=== PATIENT | female | born 1965 | race Caucasian/White ===

== ENCOUNTER 2016-07-04 19:16 | Inpatient (IN) ==
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
[2016-07-04 20:21] LABS: Bilirubin,Urine Negative (Negative); Blood,Urine Trace (Negative); Clarity,Urine Clear (Clear); Color,Urine Yellow (Yellow); Glucose,Urine (UA) Normal (Normal); Ketones,Urine Negative (Negative); Leukocyte Esterase,Urine Negative (Negative); Nitrite,Urine Negative (Negative); PH,Urine 6.5 pH Units (5.0-8.0); Protein,Urine Negative (Neg-Trace); Specific Gravity,Urine 1.007 (1.010-1.025); Urobilinogen,Urine Normal (Normal)
[2016-07-04 20:23] LABS: Bacteria,Urine None Seen per hpf (None-Few); Hyaline Casts,Urine None Seen per lpf (None-Few); RBC,Urine 0-3 per hpf (0-3); Squamous Epithelial Cell,Urine Moderate per lpf (None-Few); WBC,Urine 0-3 per hpf (0-3)
[2016-07-04 20:29] LABS: Amphetamine Screen,Urine Negative ng/mL (Cutoff=1000); Barbiturate Screen,Urine Negative ng/mL (Cutoff=200); Benzodiazepines Screen,Urine Positive ng/mL (Cutoff=200); Cannabinoid Screen,Urine Negative ng/mL (Cutoff = 50); Cocaine Screen,Urine Negative ng/mL (Cutoff= 300); Opiate Screen,Urine Negative ng/mL (Cutoff=300); Phencyclidine Screen,Urine Negative ng/mL (Cutoff=25)
[2016-07-04 21:15] LABS: Basophils # 0.1 K/mcL (0.0-0.2); Basophils % 0.6 %; Eosinophils # 0.4 K/mcL (0.0-0.6); Eosinophils % 4.4 %; Hematocrit 41.1 % (35.3-44.9); Hemoglobin 13.9 g/dL (11.5-15.4); Immature Granulocytes % 0.4 % (0-4); Lymphocytes # 3.3 K/mcL (0.6-4.6); Lymphocytes % 35.1 %; Mean Corpuscular HGB Conc 33.8 g/dL (31.6-35.5); Mean Corpuscular Hemoglobin 31.1 pg (28.0-33.3); Mean Corpuscular Volume 91.9 fL (83.0-100.0); Monocytes # 0.5 K/mcL (0.0-1.3); Monocytes % 5.1 %; Neutrophils # 5.1 K/mcL (1.6-8.9); Platelet Count 229 K/mcL (140-400); Red Blood Count 4.47 M/mcL (3.82-4.97); Red Cell Distribution Width 13.5 % (11.5-14.5); Segmented Neutrophils % 54.4 %
[2016-07-04 21:28] LABS: BUN/Creatinine Ratio 10 (6-26); Blood Urea Nitrogen 8 mg/dL (7-20); Carbon Dioxide 25 mEq/L (19-29); Chloride 104 mEq/L (98-109); Glucose 82 mg/dL (70-99); Osmolality,Calculated 285 (280-300); Potassium 3.7 mEq/L (3.5-4.5); Sodium 139 mEq/L (136-145); eGFR For African Americans > 60 (> 60); eGFR For Non-African Americans > 60 (> 60)
[2016-07-04 21:31] LABS: Acetaminophen < 1.0 mcg/mL (10-30); Ethanol < 10 mg/dL (0-10); Salicylate < 5.0 mg/dL (15-30)
[2016-07-05] MEDS ORDERED: traZODone 50 MG TABLET PO PRN (00:01)
[2016-07-05] MEDS ORDERED: hydrOXYzine pamoate 25 MG CAPSULE PO PRN (00:01)
[2016-07-05] MEDS ORDERED: Haloperidol Lactate 5 MG/ML VIAL IM PRN (00:01)
[2016-07-05] MEDS ORDERED: Mag Hydrox/Al Hydrox/Simeth 30 ML UDC PO PRN (00:01)
[2016-07-05] MEDS ORDERED: MOM Conc 10 ML UD.LIQ PO PRN (00:01)
[2016-07-05] MEDS ORDERED: *HR* LORazepam 1 MG TABLET PO PRN (00:01)
[2016-07-05] MEDS ORDERED: *HR* LORazepam 2 MG/ML VIAL IM PRN (00:01)
[2016-07-05] MEDS ORDERED: diazePAM 10 MG TABLET PO PRN (00:29)
[2016-07-05] MEDS: Ibuprofen 400 MG TABLET PO PRN ×2 (00:41→09:16)
--- NOTE | 2016-07-05 06:48 | Venous Imaging Report ---
LE Venous Duplex Patient Name:Reji Campoverde Order Number:[id number] Procedure Date:07/04/2016 Date:1965Age:51 yrs Gender:Female Location:[facility] ED Room #: ER8 Mixing Pan Tender:Courtney Juraez Referring MD:Hussain Covarrubias MD aerotriangulation specialist:DO Sarah Fontana MD:Zach Wiggins MD Primary Indications:leg swelling Secondary Indications: Impressions: Normal left lower extremity deep and superficial venous exam. Normal contralateral common femoral vein. Recommendations: After imaging the patient returned to their room. Gave vascular preliminary results to Chet Covarrubias on 07/04/2016 at 21:05. Test completed on 07/04/2016 at 8:53:00 pm. Findings Venous Duplex Results: Right: Venous imaging of the lower extremity reveals full patency and normal vessel compressibility of the right common femoral. Doppler signals in the evaluated veins were normal. Left: Venous imaging of the lower extremity reveals full patency and normal vessel compressibility of the left distal iliac, left common femoral, left superficial femoral, left popliteal, left posterior tibial, left peroneal, left great saphenous and left lesser saphenous. Doppler signals in the evaluated veins were normal. Prior Study: No prior study available for comparison. Lower Extremity Venous Duplex Side Vein Compress Spontaneous Flow Augment Diameter (cm) Depth (cm) Left Distal Iliac Normal Yes Phasic Yes Left Common Femoral Normal Yes Phasic Yes Left Superficial Femoral Normal Yes Phasic Yes Left Popliteal Normal Yes Phasic Yes Left Posterior Tibial Normal Yes Phasic Yes Left Peroneal Normal Yes Phasic Yes Left Great Saphenous Normal Yes Phasic Yes Left Lesser Saphenous Normal Yes Phasic Yes Right Common Femoral Normal Yes Phasic Yes Updated by Zach Wiggins MD on 07/05/2016 6:43:09 AM electronically signed on 07/05/2016 6:43:18 AM with status of Final
--- NOTE | 2016-07-05 07:34 | Emergency Department Note ---
Disposition Clinical Impression: Suicidal ideation Disposition: Admitted As Inpatient Condition: Good Psych HPI - General Chief Complaint: ED Psychiatric Symptoms Stated Complaint: Bloodclot/SI Time Seen by Provider: 07/04/16 20:12 Source: patient Mode of arrival: ambulatory - History of Present Illness Duration: constant Improves with: none Worsens with: none Associated symptoms: Reports: denies other symptoms Treatments prior to arrival: none - Related Data Previous Rx's Medication Instructions Recorded Famotidine [Pepcid] 20 mg PO BID #60 tablet 04/18/15 PredniSONE [Prednisone] 10 mg PO DAILY #21 tablet 04/18/15 Cephalexin [Keflex] 1 cap PO QID #40 capsule 04/21/15 Ibuprofen [Motrin] 1 tab PO Q8HR #30 tablet 04/21/15 Ketorolac [Toradol] 10 mg PO Q6HR PRN #20 tablet 04/21/15 Albuterol Sulfate [Albuterol 0 puff IH Q6HR PRN #1 hfa.aer.ad 08/20/15 Inhaler] Azithromycin [Azithromycin 6-Tab 250 mg PO PER PKG DI #6 tab 08/20/15 Pack] Nicotine Patch [Nicoderm] 14 mg TD DAILY #20 patch.td24 08/20/15 PredniSONE 60 mg PO DAILY #15 tablet 08/20/15 GuaiFENesin ER [Mucinex] 600 mg PO BID #10 tbbp.12hr 08/22/15 HYDROcodone BIT/Homatropine 5 mg PO Q6HR #10 tablet 08/22/15 [Hycodan] Levofloxacin [Levaquin] 750 mg PO DAILY #7 tablet 08/22/15 Ondansetron ODT [Zofran ODT] 4 mg PO Q6HR #10 tab.rapdis 08/22/15 PredniSONE 60 mg PO DAILY #15 tablet 08/22/15 Allergies Allergy/AdvReac Type Severity Reaction Status Date / Time acetaminophen [From Vicodin] Allergy Mild Nausea Verified 04/18/15 18:24 hydrocodone [From Vicodin] Allergy Mild Nausea Verified 04/18/15 18:24 aspirin [From Percodan] AdvReac Mild Nausea Verified 04/18/15 18:24 codeine AdvReac Mild Nausea Verified 04/18/15 18:24 Oxycodone [From Percocet] AdvReac Mild Nausea Verified 04/18/15 18:24 tramadol [From Ultram] AdvReac Mild Nausea Verified 04/18/15 18:24 Sulfa (Sulfonamide AdvReac Nausea Verified 04/18/15 18:24 Antibiotics) [place] Allergy Hives Uncoded 04/18/15 18:24 Constitutional: Denies: fever, chills, weakness, weight change Eyes: Denies: eye pain, eye discharge, vision change ENT ED: Denies: ear pain, throat pain, dental pain, hearing loss, epistaxis, congestion, dysphagia Cardiovascular: Denies: chest pain, palpitations, dyspnea on exertion, edema, syncope Respiratory: Denies: cough, dyspnea, wheezes, hemoptysis, stridor Gastrointestinal: Denies: abdominal pain, nausea, vomiting, diarrhea, constipation, hematemesis, melena, hematochezia Genitourinary: Denies: dysuria, frequency, hematuria, discharge Musculoskeletal: Reports: back pain, arthralgia. Denies: neck pain, myalgia Integumentary: Denies: rash, abrasion, lesions Neurological: Denies: headache, weakness, numbness, paresthesias, confusion, abnormal gait, vertigo Psychiatric: Denies: anxiety, depression, suicidal thoughts, homicidal thoughts , auditory hallucinations, visual hallucinations Endocrine: Denies: fatigue Hematological/Lymphatic: Denies: easy bleeding, easy bruising Allergic/Immunologic: Denies: facial swelling, urticaria Past Medical History - Past Medical History Medical history: Reports: thyroid disease, other Surgical history: Reports: appendectomy Psychiatric history: Reports: anxiety, depression 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 history - Social History Smoking Status: Current every day smoker Smokeless Tobacco Status: No Alcohol use: Reports: rarely Drug use: Reports: none Physical Exam - General Limitations: no limitations General appearance: alert Course Vital Signs Temperature 98.4 F 07/04/16 19:24 Pulse Rate 80 07/04/16 19:24 Respiratory Rate 14 07/04/16 19:24 Blood Pressure 150/89 07/04/16 19:24 O2 Sat by Pulse Oximetry 98 07/04/16 19:24 Temperature 97.3 F L 07/04/16 23:42 Pulse Rate 67 07/04/16 23:42 Respiratory Rate 18 07/04/16 23:42 Blood Pressure 156/93 07/04/16 23:42 O2 Sat by Pulse Oximetry 98 07/04/16 19:24 Oxygen Delivery Oxygen Delivery Room Air Psych - MDM Narrative Medical decision making narrative: Patient received in signout from Dr. Covarrubias pending disposition and they will health evaluation. [facility] health evaluated the patient and recommended she be admitted to the hospital for further care and evaluation. Patient had no further concerns or complaints. - Lab Data Result diagrams: 07/04/16 21:07 07/04/16 21:07 Lab Results 07/04/16 07/04/16 07/04/16 Range/Units 19:45 19:45 21:07 WBC 9.4 (4.3-11.1) K/mcL RBC 4.47 (3.82-4.97) M/mcL Hgb 13.9 (11.5-15.4) g/dL Hct 41.1 (35.3-44.9) % MCV 91.9 (83.0-100.0) fL MCH 31.1 (28.0-33.3) pg MCHC 33.8 (31.6-35.5) g/dL RDW 13.5 (11.5-14.5) % Plt Count 229 (140-400) K/mcL MPV 9.0 L (9.4-12.4) fL Immature Gran % 0.4 (0-4) % Seg Neutrophils % 54.4 % Lymphocytes % 35.1 % Monocytes % 5.1 % Eosinophils % 4.4 % Basophils % 0.6 % Neutrophils # 5.1 (1.6-8.9) K/mcL Lymphocytes # 3.3 (0.6-4.6) K/mcL Monocytes # 0.5 (0.0-1.3) K/mcL Eosinophils # 0.4 (0.0-0.6) K/mcL Basophils # 0.1 (0.0-0.2) K/mcL Sodium (136-145) mEq/L Potassium (3.5-4.5) mEq/L Chloride (98-109) mEq/L Carbon Dioxide (19-29) mEq/L BUN (7-20) mg/dL Creatinine (0.57-1.11) mg/dL Est GFR ( Amer) (> 60) Est GFR (Non-Af Amer) (> 60) BUN/Creatinine Ratio (6-26) Glucose (70-99) mg/dL Calculated Osmolality (280-300) Calcium (8.6-10.8) mg/dL Urine Color Yellow (Yellow) Urine Clarity Clear (Clear) Urine pH 6.5 (5.0-8.0) pH Units Ur Specific [place] 1.007 L (1.010-1.025) Urine Protein Negative (Neg-Trace) mg/dL Urine Glucose (UA) Normal (Normal) mg/dL Urine Ketones Negative (Negative) mg/dL Urine Blood Trace H (Negative) Urine Nitrite Negative (Negative) Urine Bilirubin Negative (Negative) Urine Urobilinogen Normal (Normal) mg/dL Ur Leukocyte Esterase Negative (Negative) Urine Microscopic RBC 0-3 (0-3) per hpf Urine Microscopic WBC 0-3 (0-3) per hpf Ur Squamous Epith Cells Moderate H (None-Few) per lpf Urine Bacteria None Seen (None-Few) per hpf Hyaline Casts None Seen (None-Few) per lpf Salicylates (15-30) mg/dL Urine Opiates Screen Negative (Qnrjgk=896) ng/mL Acetaminophen (10-30) mcg/mL Ur Barbiturates Screen Negative (Eaddpm=852) ng/mL Ur Phencyclidine Scrn Negative (Cutoff=25) ng/mL Ur Amphetamines Screen Negative (Mdkmyo=8852) ng/mL U Benzodiazepines Scrn Positive H (Rlvfet=453) ng/mL Urine Cocaine Screen Negative (Cutoff= 300) ng/mL U Marijuana (THC) Screen Negative (Cutoff = 50) ng/mL Ethyl Alcohol (0-10) mg/dL 07/04/ Range/Units 21:07 WBC (4.3-11.1) K/mcL RBC (3.82-4.97) M/mcL Hgb (11.5-15.4) g/dL Hct (35.3-44.9) % MCV (83.0-100.0) fL MCH (28.0-33.3) pg MCHC (31.6-35.5) g/dL RDW (11.5-14.5) % Plt Count (140-400) K/mcL MPV (9.4-12.4) fL Immature Gran % (0-4) % Seg Neutrophils % % Lymphocytes % % Monocytes % % Eosinophils % % Basophils % % Neutrophils # (1.6-8.9) K/mcL Lymphocytes # (0.6-4.6) K/mcL Monocytes # (0.0-1.3) K/mcL Eosinophils # (0.0-0.6) K/mcL Basophils # (0.0-0.2) K/mcL Sodium 139 (136-145) mEq/L Potassium 3.7 (3.5-4.5) mEq/L Chloride 104 (98-109) mEq/L Carbon Dioxide 25 (19-29) mEq/L BUN 8 (7-20) mg/dL Creatinine 0.79 (0.57-1.11) mg/dL Est GFR ( Amer) > 60 (> 60) Est GFR (Non-Af Amer) > 60 (> 60) BUN/Creatinine Ratio 10 (6-26) Glucose 82 (70-99) mg/dL Calculated Osmolality 285 (280-300) Calcium 9.0 (8.6-10.8) mg/dL Urine Color (Yellow) Urine Clarity (Clear) Urine pH (5.0-8.0) pH Units Ur Specific [place] (1.010-1.025) Urine Protein (Neg-Trace) mg/dL Urine Glucose (UA) (Normal) mg/dL Urine Ketones (Negative) mg/dL Urine Blood (Negative) Urine Nitrite (Negative) Urine Bilirubin (Negative) Urine Urobilinogen (Normal) mg/dL Ur Leukocyte Esterase (Negative) Urine Microscopic RBC (0-3) per hpf Urine Microscopic WBC (0-3) per hpf Ur Squamous Epith Cells (None-Few) per lpf Urine Bacteria (None-Few) per hpf Hyaline Casts (None-Few) per lpf Salicylates < 5.0 L (15-30) mg/dL Urine Opiates Screen (Zdguwd=064) ng/mL Acetaminophen < 1.0 L (10-30) mcg/mL Ur Barbiturates Screen (Pnvydj=614) ng/mL Ur Phencyclidine Scrn (Cutoff=25) ng/mL Ur Amphetamines Screen (Fanzyp=0300) ng/mL U Benzodiazepines Scrn (Rossbs=770) ng/mL Urine Cocaine Screen (Cutoff= 300) ng/mL U Marijuana (THC) Screen (Cutoff = 50) ng/mL Ethyl Alcohol < 10 (0-10) mg/dL Psychiatric Medical Clearance - Medical Clearance Checklist Medical History: No Social History Section defined Current Vitals: Last Vital Signs Temp 97.3 F L 07/04/16 23:42 Pulse 67 07/04/16 23:42 Resp 18 07/04/16 23:42 BP 156/93 07/04/16 23:42 Pulse Ox 98 07/04/16 19:24 Psychiatric Lab Panel: Drug Levels and Toxicity 07/04/16 07/04/16 19:45 21:07 Urine Opiates Screen Negative Acetaminophen < 1.0 L Ur Barbiturates Screen Negative Ur Phencyclidine Scrn Negative Ur Amphetamines Screen Negative U Benzodiazepines Scrn Positive H Urine Cocaine Screen Negative U Marijuana (THC) Screen Negative Ethyl Alcohol < 10 Abnormal Labs: Abnormal lab results MPV 9.0 fL (9.4-12.4) L 07/04/16 21:07 Ur Specific [place] 1.007 (1.010-1.025) L 07/04/16 19:45 Urine Blood Trace (Negative) H 07/04/16 19:45 Ur Squamous Epith Cells Moderate per lpf (None-Few) H 07/04/16 19:45 Salicylates < 5.0 mg/dL (15-30) L 07/04/16 21:07 Acetaminophen < 1.0 mcg/mL (10-30) L 07/04/16 21:07 U Benzodiazepines Scrn Positive ng/mL (Bbjnen=331) H 07/04/16 19:45 Statement of Medical Clearance: I have evaluated the patient, reviewed diagnostic information, and certify that the patient's medical condition is sufficiently stable that transfer to the psychiatric unit does not pose a significant risk of deterioration.
[2016-07-05] MEDS: Nicotine 14 MG PATCH.TD24 TD SCH (09:10)
--- NOTE | 2016-07-05 11:22 | Psychiatry History & Physical ---
Date of Encounter: 07/05/16 Time of Encounter: 11:10 History of Present Illness Patient Stated Chief Complaint: Suicidal Medicare Admission Attestation: For traditional Medicare patients the provided hospital inpatient services are reasonable and necessary and in the case of services not specified as inpatient -only under 42 CFR 419.22 (n), that they are appropriately provided as inpatient services in accordance 42 CFR 412.3. For [facility] the patient may reasonably be expected to be discharged or transferred to a hospital within 96 hours after admission to the [facility]. Admitted From: Emergency Dept History of Present Illness: Ms. Campoverde is a 51 year old female admitted from the emergency room for evaluation of suicidal ideation. Patient has no previous psychiatric history or treatment. She reports her stress at work as a result of falsifying her time sheet, she works as a [employer]. Also she is taking care off her mother who has multiple medical problems. Patient could not explain or endorse symptoms of depression or hopelessness and insisted that she is not suicidal. She is occupied with medical issues, she was evaluated for DVT and reported as negative by ultrasound. On interview she was guarded and evasive tangential and circumstantial and was not coming forward with answers to questions she was also hostile and irritable. Past Med Surg Social Fam HX - Past Medical History Medical history: thyroid disease, other - Past Psychiatric History Psychiatric history: Reports: no psych history - Past Surgical History Surgical History: appendectomy - Social History Smoking Status: Current every day smoker Smokeless Tobacco Status: No Alcohol use: rarely Drug use: none - Family History Mother Hx Family Neuromuscular Disorders: Yes (TIAs) Medications & Allergies Ibuprofen [Motrin] 1 tab PO Q8HR #30 tablet 04/21/15 [Rx] Nicotine Patch [Nicoderm] 14 mg TD DAILY #20 patch.td24 08/20/15 [Rx] Albuterol Sulfate [Albuterol Inhaler] 2 puff IH Q6HR PRN 07/05/16 [History] Amitriptyline [Elavil] 25 mg PO DAILY 07/05/16 [History] Atorvastatin Calcium [Lipitor] 20 mg PO DAILY 07/05/16 [History] Cyanocobalamin (Vitamin B-12) [Vitamin B12] 1,000 mcg PO DAILY 07/05/16 [History ] Cyclobenzaprine [Flexeril] 10 mg PO TID PRN 07/05/16 [History] Diazepam [Valium] 10 mg PO TID PRN 07/05/16 [History] DiphenhydraMINE [Benadryl] 25 mg PO Q6HR PRN 07/05/16 [History] EPINEPHrine [Epipen] 0.3 mg IM ONCE PRN 07/05/16 [History] Escitalopram [Lexapro] 30 mg PO DAILY 07/05/16 [History] Esomeprazole Magnesium [Nexium] 40 mg PO DAILY 07/05/16 [History] Levothyroxine [Synthroid] 75 mcg PO DAILY 07/05/16 [History] Allergies acetaminophen [From Vicodin] Allergy (Mild, Verified 04/18/15 18:24) Nausea hydrocodone [From Vicodin] Allergy (Mild, Verified 04/18/15 18:24) Nausea aspirin [From Percodan] Adverse Reaction (Mild, Verified 04/18/15 18:24) Nausea codeine Adverse Reaction (Mild, Verified 04/18/15 18:24) Nausea Oxycodone [From Percocet] Adverse Reaction (Mild, Verified 04/18/15 18:24) Nausea tramadol [From Ultram] Adverse Reaction (Mild, Verified 04/18/15 18:24) Nausea Sulfa (Sulfonamide Antibiotics) Adverse Reaction (Verified 04/18/15 18:24) Nausea cottonwood Allergy (Uncoded 04/18/15 18:24) Hives Review of Systems Psychiatric: Reports: suicidal ideation Mental Status Exam Patient orientation: Yes Person, Yes Time, Yes Place Level of alertness: Alert Patient appearance: Appropriate, Well Groomed, Obese Behavior: calm, uncooperative Psychomotor activity: Normal Eye contact: Minimal Contact Mood description: Euthymic/stable, Anxious, Irritable Affect description: congruent with mood, full range Speech pattern: Normal rate, Normal rhythm, Normal tone, Other (Vague, evasive) Speech volume: Normal Thought process: Linear, Goal Oriented Thought content: Yes Suicidal ideation, No Homicidal ideation, No Overt delusions Perceptual disturbances: No Auditory hallucinations, No Visual hallucinations Attention span: Unable to Focus Memory description: Grossly Intact Patient reliability: Questionable Historian Intelligence estimate: Average Judgment: Limited Insight: Partial Results - Vital Signs Vital signs: Temp Pulse Resp BP Pulse Ox 97.2 F L 81 16 142/94 98 07/05/16 08:38 07/05/16 08:38 07/05/16 08:38 07/05/16 08:38 07/04/16 19:24 - Labs Labs: Laboratory Last Values WBC 9.4 K/mcL (4.3-11.1) 07/04/16 21:07 RBC 4.47 M/mcL (3.82-4.97) 07/04/16 21:07 Hgb 13.9 g/dL (11.5-15.4) 07/04/16 21:07 Hct 41.1 % (35.3-44.9) 07/04/16 21:07 MCV 91.9 fL (83.0-100.0) 07/04/16 21:07 MCH 31.1 pg (28.0-33.3) 07/04/16 21:07 MCHC 33.8 g/dL (31.6-35.5) 07/04/16 21:07 RDW 13.5 % (11.5-14.5) 07/04/16 21:07 Plt Count 229 K/mcL (140-400) 07/04/16 21:07 MPV 9.0 fL (9.4-12.4) L 07/04/16 21:07 Immature Gran % 0.4 % (0-4) 07/04/16 21:07 Seg Neutrophils % 54.4 % 07/04/16 21:07 Lymphocytes % 35.1 % 07/04/16 21:07 Monocytes % 5.1 % 07/04/16 21:07 Eosinophils % 4.4 % 07/04/16 21:07 Basophils % 0.6 % 07/04/16 21:07 Neutrophils # 5.1 K/mcL (1.6-8.9) 07/04/16 21:07 Lymphocytes # 3.3 K/mcL (0.6-4.6) 07/04/16 21:07 Monocytes # 0.5 K/mcL (0.0-1.3) 07/04/16 21:07 Eosinophils # 0.4 K/mcL (0.0-0.6) 07/04/16 21:07 Basophils # 0.1 K/mcL (0.0-0.2) 07/04/16 21:07 Sodium 139 mEq/L (136-145) 07/04/16 21:07 Potassium 3.7 mEq/L (3.5-4.5) 07/04/16 21:07 Chloride 104 mEq/L (98-109) 07/04/16 21:07 Carbon Dioxide 25 mEq/L (19-29) 07/04/16 21:07 BUN 8 mg/dL (7-20) 07/04/16 21:07 Creatinine 0.79 mg/dL (0.57-1.11) 07/04/16 21:07 Est GFR ( Amer) > 60 (> 60) 07/04/16 21:07 Est GFR (Non-Af Amer) > 60 (> 60) 07/04/16 21:07 BUN/Creatinine Ratio 10 (6-26) 07/04/16 21:07 Glucose 82 mg/dL (70-99) 07/04/16 21:07 Calculated Osmolality 285 (280-300) 07/04/16 21:07 Calcium 9.0 mg/dL (8.6-10.8) 07/04/16 21:07 Urine Color Yellow (Yellow) 07/04/16 19:45 Urine Clarity Clear (Clear) 07/04/16 19:45 Urine pH 6.5 pH Units (5.0-8.0) 07/04/16 19:45 Ur Specific Belcher 1.007 (1.010-1.025) L 07/04/16 19:45 Urine Protein Negative mg/dL (Neg-Trace) 07/04/16 19:45 Urine Glucose (UA) Normal mg/dL (Normal) 07/04/16 19:45 Urine Ketones Negative mg/dL (Negative) 07/04/16 19:45 Urine Blood Trace (Negative) H 07/04/16 19:45 Urine Nitrite Negative (Negative) 07/04/16 19:45 Urine Bilirubin Negative (Negative) 07/04/16 19:45 Urine Urobilinogen Normal mg/dL (Normal) 07/04/16 19:45 Ur Leukocyte Esterase Negative (Negative) 07/04/16 19:45 Urine Microscopic RBC 0-3 per hpf (0-3) 07/04/16 19:45 Urine Microscopic WBC 0-3 per hpf (0-3) 07/04/16 19:45 Ur Squamous Epith Cells Moderate per lpf (None-Few) H 07/04/16 19:45 Urine Bacteria None Seen per hpf (None-Few) 07/04/16 19:45 Hyaline Casts None Seen per lpf (None-Few) 07/04/16 19:45 Salicylates < 5.0 mg/dL (15-30) L 07/04/16 21:07 Urine Opiates Screen Negative ng/mL (Titcbz=044) 07/04/16 19:45 Acetaminophen < 1.0 mcg/mL (10-30) L 07/04/16 21:07 Ur Barbiturates Screen Negative ng/mL (Jfzwiy=997) 07/04/16 19:45 Ur Phencyclidine Scrn Negative ng/mL (Cutoff=25) 07/04/16 19:45 Ur Amphetamines Screen Negative ng/mL (Ooenec=0594) 07/04/16 19:45 U Benzodiazepines Scrn Positive ng/mL (Ryigri=717) H 07/04/16 19:45 Urine Cocaine Screen Negative ng/mL (Cutoff= 300) 07/04/16 19:45 U Marijuana (THC) Screen Negative ng/mL (Cutoff = 50) 07/04/16 19:45 Ethyl Alcohol < 10 mg/dL (0-10) 07/04/16 21:07 Assessment and Plan (1) Major depressive disorder, recurrent episode, unspecified Current visit: Yes Status: Acute Plan: Admit inpatient for safety and stabilization, Close observation, Suicide Precautions per unit protocol, Encourage participation in unit milieu, Group Therapy, Monitor sleep, Monitor appetite Qualifiers: Major depression episode severity: unspecified Qualified Code(s): F33.9 - Major depressive disorder, recurrent, unspecified (2) Major depressive disorder, single episode, unspecified Current visit: Yes Status: Acute Qualifiers: Psychotic features: without psychotic features Qualified Code(s): F32.2 - Major depressive disorder, single episode, severe without psychotic features
[2016-07-05] MEDS: Ibuprofen 800 MG TABLET PO PRN (21:00)
[2016-07-06] MEDS: Ibuprofen 800 MG TABLET PO PRN (07:13)
[2016-07-06 08:49] VITALS: BP 137/88
[2016-07-06] MEDS: Nicotine 14 MG PATCH.TD24 TD SCH (09:13)
--- NOTE | 2016-07-06 12:06 | Discharge Summary ---
Date of Encounter: 07/06/16 Time of Encounter: 11:59 Diagnosis - Discharge Diagnosis (1) Major depressive disorder, single episode, unspecified Status: Acute Qualifiers: Psychotic features: without psychotic features Qualified Code(s): F32.2 - Major depressive disorder, single episode, severe without psychotic features Medications - Discharge Medications Ibuprofen [Motrin] 1 tab PO Q8HR #30 tablet 04/21/15 [Rx] Nicotine Patch [Nicoderm] 14 mg TD DAILY #20 patch.td24 08/20/15 [Rx] Albuterol Sulfate [Albuterol Inhaler] 2 puff IH Q6HR PRN 07/05/16 [History] Amitriptyline [Elavil] 25 mg PO DAILY 07/05/16 [History] Atorvastatin Calcium [Lipitor] 20 mg PO DAILY 07/05/16 [History] Cyanocobalamin (Vitamin B-12) [Vitamin B12] 1,000 mcg PO DAILY 07/05/16 [History ] Cyclobenzaprine [Flexeril] 10 mg PO TID PRN 07/05/16 [History] Diazepam [Valium] 10 mg PO TID PRN 07/05/16 [History] DiphenhydraMINE [Benadryl] 25 mg PO Q6HR PRN 07/05/16 [History] EPINEPHrine [Epipen] 0.3 mg IM ONCE PRN 07/05/16 [History] Escitalopram [Lexapro] 30 mg PO DAILY 07/05/16 [History] Esomeprazole Magnesium [Nexium] 40 mg PO DAILY 07/05/16 [History] Levothyroxine [Synthroid] 75 mcg PO DAILY 07/05/16 [History] Allergies acetaminophen [From Vicodin] Allergy (Mild, Verified 04/18/15 18:24) Nausea hydrocodone [From Vicodin] Allergy (Mild, Verified 04/18/15 18:24) Nausea aspirin [From Percodan] Adverse Reaction (Mild, Verified 04/18/15 18:24) Nausea codeine Adverse Reaction (Mild, Verified 04/18/15 18:24) Nausea Oxycodone [From Percocet] Adverse Reaction (Mild, Verified 04/18/15 18:24) Nausea tramadol [From Ultram] Adverse Reaction (Mild, Verified 04/18/15 18:24) Nausea Sulfa (Sulfonamide Antibiotics) Adverse Reaction (Verified 04/18/15 18:24) Nausea cottonwood Allergy (Uncoded 04/18/15 18:24) Hives Provider Date of admission: 07/04/16 23:34 Primary care physician: PCP NO Discharging clinician: Billy Palafox Assessment and Plan - Patient/Caregiver Discharge Instructions Activity: resume usual activities as tolerated Diet: regular diet - Follow up Plan Follow up with: Ebenezer Cotto [facility] [employer] [facility] [Outside] - 07/10/16 9:30 am (The above appointment is with Yanni Castro for counseling. Please arrive 15 minutes early to complete paperwork. Please bring your insurance card, proof of income , photo ID and medications in their original bottles. You will also see Cindy Hutchins, psychiatric prescriber, on 09/25/2016 at 2:00pm. If you are unable to keep any appointment, 24 hour business notice of cancellation is expected. ) Zach Lew, [Partnered Physician] - 07/16/16 11:30 am (The above appointment is with Dr. Lew.) Functional capacity at discharge: independent ambulation Overall status at discharge: Stable Disposition: Home, Self-Care Hospital Course Hospital course: Ms. Campoverde is a 51 year old female admitted from the emergency room for suicidal ideation with plan to overdose on her medication. Details of the admission please see H&P On the unit patient was restarted on home medication, no medication changes were necessary. Patient did not participate in group activities and was demanding from the nursing staff regarding her medication and her needs. Patient denied any suicidal intent and she was medically stable and anxious to be discharged. Follow-up plans were shared with her by the elementary school social worker. - Time Spent with Patient Total time spent providing and/or coordinating discharge services: Greater than 30 minutes Quality - Multiple Antipsychotics Patient discharged on 2 or more antipsychotic medications: No Mental Status Exam - Mental Status Exam Patient orientation: Yes Person, Yes Time, Yes Place Level of alertness: Alert Patient appearance: Appropriate, Well Groomed, Obese Behavior: calm, uncooperative Psychomotor activity: Normal Eye contact: Minimal Contact Mood description: Euthymic/stable, Anxious, Irritable Affect description: congruent with mood, full range Speech pattern: Normal rate, Normal rhythm, Normal tone, Other (Vague, evasive) Speech Volume: Normal Thought process: Linear, Goal Oriented Thought Content: No Suicidal ideation, No Homicidal ideation, No Overt delusions Perceptual Disturbances: No Auditory hallucinations, No Visual hallucinations Judgment: Limited Insight: Partial
== END 2016-07-06 12:40 | disposition home or self-care (01) | DRG 885 ==
LOC: EMEROO 19:16 → 1ANU 23:34
PROVIDERS: ADMIT Psychiatry & Neurology Psychiatry; ATTEND Psychiatry & Neurology Psychiatry

== ENCOUNTER 2017-08-20 17:46 | Inpatient (IN) ==
[2017-08-20 18:22] LABS: Bilirubin,Urine Negative (Negative); Blood,Urine Trace (Negative); Clarity,Urine Cloudy (Clear); Color,Urine Yellow (Yellow); Glucose,Urine (UA) Normal (Normal); Ketones,Urine Negative (Negative); Leukocyte Esterase,Urine Negative (Negative); Nitrite,Urine Negative (Negative); Protein,Urine Negative (Neg-Trace); Specific Gravity,Urine 1.018 (1.010-1.025); Urobilinogen,Urine Normal (Normal)
--- NOTE | 2017-08-20 18:23 | Emergency Department Note ---
Disposition Clinical Impression: Suicidal ideation Depression Qualifiers: Depression Type: unspecified Qualified Code(s): F32.9 - Major depressive disorder, single episode, unspecified Disposition: Admitted As Inpatient Condition: Good Referrals: NONE,PCP [Primary Care Provider] - Forms: ED Satisfaction Letter Time of Disposition: 20:58 Psych HPI - General Chief Complaint: ED Psychiatric Symptoms Stated Complaint: SI Time Seen by Provider: 08/20/17 17:53 Source: patient Mode of arrival: ambulatory Limitations: no limitations Nursing Notes Reviewed: Yes Vital Signs Reviewed: Yes - History of Present Illness HPI Narrative: Patient presents emergency room for complaint of suicidal ideation. Patient has had significant life stressors and is feeling more and more depressed. Patient said that she wants Tagamet ureterovesicular cell. Patient denies any active trauma or injury at this point. Denies any other symptoms or issues at this time. Pt complaint: suicidal ideation Onset (ago): day(s) Duration: constant History of similar episodes: Yes Improves with: none Worsens with: none Context: significant life stressor Alleged intoxication: No Associated Psychiatric Symptoms: depression, suicidal ideation Traumatic symptoms: denies traumatic injury Treatments prior to arrival: none Self harm or harm to others: admits thoughts of self harm, has plan - Related Data Home Medications Medication Instructions Recorded Confirmed Albuterol Sulfate [Albuterol 2 puff IH Q6HR PRN 07/05/16 08/20/17 Inhaler] Atorvastatin Calcium [Lipitor] 20 mg PO DAILY 07/05/16 08/20/17 Cyclobenzaprine [Flexeril] 10 mg PO TID PRN 07/05/16 08/20/17 EPINEPHrine [Epipen] 0.3 mg IM ONCE PRN 07/05/16 08/20/17 Escitalopram [Lexapro] 20 mg PO DAILY 07/05/16 08/20/17 Esomeprazole Magnesium [Nexium] 40 mg PO DAILY 07/05/16 08/20/17 Levothyroxine [Synthroid] 75 mcg PO DAILY 07/05/16 08/20/17 diazePAM [Valium] 10 mg PO TID PRN 07/05/16 08/20/17 Amitriptyline [Elavil] 25 mg PO HS 06/12/17 08/20/17 Brexpiprazole [Rexulti] 1 mg PO DAILY 06/12/17 08/20/17 Cetirizine HCl [Cetirizine HCl] 10 mg PO DAILY 06/12/17 08/20/17 Diclofenac Sodium [Voltaren] 50 mg PO TID PRN 06/12/17 08/20/17 Lurasidone [Latuda] 20 mg PO DAILY 06/12/17 08/20/17 Aspirin [Ecotrin] 325 mg PO DAILY 08/20/17 08/20/17 Ergocalciferol (VITAMIN D2) 50,000 unit PO QWEEK 08/20/17 08/20/17 [Vitamin D2] Montelukast [Singulair] 10 mg PO DAILY 08/20/17 08/20/17 Allergies Allergy/AdvReac Type Severity Reaction Status Date / Time acetaminophen [From Vicodin] Allergy Mild Nausea Verified 08/20/17 20:25 hydrocodone [From Vicodin] Allergy Mild Nausea Verified 08/20/17 20:25 aspirin [From Percodan] AdvReac Mild Nausea Verified 08/20/17 20:25 codeine AdvReac Mild Nausea Verified 08/20/17 20:25 Oxycodone [From Percocet] AdvReac Mild Nausea Verified 08/20/17 20:25 tramadol [From Ultram] AdvReac Mild Nausea Verified 08/20/17 20:25 Sulfa (Sulfonamide AdvReac Nausea Verified 08/20/17 20:25 Antibiotics) cottonwood Allergy Hives Uncoded 08/20/17 20:25 All systems ED: reviewed and negative except as stated. Review of Systems: As Per HPI Constitutional: Denies: fever, chills Cardiovascular: Denies: chest pain, palpitations, dyspnea on exertion Respiratory: Denies: cough, dyspnea, wheezes Gastrointestinal: Denies: nausea, vomiting, diarrhea Genitourinary: Denies: urgency, dysuria, frequency Musculoskeletal: Denies: back pain, neck pain Integumentary: Denies: rash Neurological: Denies: headache Psychiatric: Reports: depression, suicidal thoughts Past Medical History - Past Medical History Attestation: Yes The following information was validated with the patient. 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 Absent: tenderness, meningismus, lymphadenopathy - Chest Chest inspection: Present: normal inspection, symmetric chest wall rise. Absent : tenderness - Respiratory Respiratory exam: Present: normal lung sounds bilaterally - Cardiovascular Cardiovascular exam: Present: regular rate, normal rhythm, normal heart sounds - Abdominal Exam Abdominal exam: Present: soft, Non-Tender, normal bowel sounds. Absent: tenderness, distention, guarding, rebound, rigidity - Extremities Exam Extremities exam: Present: normal inspection, full ROM, normal capillary refill. Absent: tenderness - Back Exam Back exam: Present: normal inspection - Neurological Exam Neurological exam: Present: alert, oriented X3, CN II-XII intact, normal gait - Skin Skin exam: Present: warm, dry, intact, normal color Course Course Narrative: Patient seen and examined the time of arrival. See history of present illness. Patient is a well-appearing female does appear to be tearful and crying at the bedside. She describes some suicidal thoughts of pointing and I fear throat Wright so. She has significant life stressors at home and thinks that she may have bipolar. She has been going to counseling Center but has not been evaluated and has not been started on medications. Denies any chest pain shortness of breath headache vision changes nausea vomiting fevers or chills. Denies any trauma or injury. Patient is alert and oriented she answers questions appropriately. She is appropriate medical decision-making capacity at this time. Medical clearance will be completed at this point the patient will be evaluated by the psychiatric team. - Reevaluation(s) Reevaluation #1: 1 a contacted. Patient will be evaluated at this time. Time: 20:14 Reevaluation #2: Patient will be admitted to the psychiatric floor this time for further evaluation and management. Patient is otherwise clinically stable. Admission orders placed at this time. Time: 20:58 Vital Signs Temperature 98.1 F 08/20/17 17:47 Pulse Rate 95 08/20/17 17:47 Respiratory Rate 16 08/20/17 17:47 Blood Pressure 178/80 08/20/17 17:47 O2 Sat by Pulse Oximetry 98 08/20/17 17:47 Temperature 98.1 F 08/20/17 17:47 Pulse Rate 95 08/20/17 17:47 Respiratory Rate 16 08/20/17 17:47 Blood Pressure 178/80 08/20/17 17:47 O2 Sat by Pulse Oximetry 98 08/20/17 17:47 Oxygen Delivery Oxygen Delivery Room Air Psych - MDM Narrative Medical decision making narrative: Suicidal ideation, depression - Differential Diagnosis Likely: suicidal ideation, depression - Medical Records Medical records reviewed: Yes I reviewed the patient's medical records. - Lab Data Lab results reviewed: Yes I reviewed the patient's lab results. Result diagrams: 08/20/17 19:00 08/20/17 19:00 Lab Results 08/20/17 08/20/17 08/20/17 Range/Units 17:57 17:57 17:57 WBC (4.3-11.1) K/mcL RBC (3.82-4.97) M/mcL Hgb (11.5-15.4) g/dL Hct (35.3-44.9) % MCV (83.0-100.0) fL MCH (28.0-33.3) pg MCHC (31.6-35.5) g/dL RDW (11.5-14.5) % Plt Count (140-400) K/mcL MPV (9.4-12.4) fL Immature Gran % (0-4) % Seg Neutrophils % % Lymphocytes % % Monocytes % % Eosinophils % % Basophils % % Neutrophils # (1.6-8.9) K/mcL Lymphocytes # (0.6-4.6) K/mcL Monocytes # (0.0-1.3) K/mcL Eosinophils # (0.0-0.6) K/mcL Basophils # (0.0-0.2) K/mcL Sodium (136-145) mEq/L Potassium (3.5-5.1) mEq/L Chloride (98-107) mEq/L Carbon Dioxide (23-29) mEq/L BUN (6-20) mg/dL Creatinine (0.60-1.20) mg/dL Est GFR ( Amer) (> 60) Est GFR (Non-Af Amer) (> 60) BUN/Creatinine Ratio (6-26) Glucose (70-105) mg/dL Calculated Osmolality (280-300) Calcium (8.6-10.3) mg/dL Urine Color Yellow (Yellow) Urine Clarity Cloudy A (Clear) Urine pH 6.0 (5.0-8.0) pH Units Ur Specific [place] 1.018 (1.010-1.025) Urine Protein Negative (Neg-Trace) mg/dL Urine Glucose (UA) Normal (Normal) mg/dL Urine Ketones Negative (Negative) mg/dL Urine Blood Trace H (Negative) Urine Nitrite Negative (Negative) Urine Bilirubin Negative (Negative) Urine Urobilinogen Normal (Normal) mg/dL Ur Leukocyte Esterase Negative (Negative) Urine Microscopic WBC 0-3 (0-3) per hpf Ur Squamous Epith Cells Many H (None-Few) per lpf Urine Bacteria None Seen (None-Few) per hpf Hyaline Casts None Seen (None-Few) per lpf Urine Yeast Few H (None Seen) per hpf Urine Test Negative (Negative) Salicylates (15.0-30.0) mg/dL Urine Opiates Screen Negative (Iwbwgk=493) ng/mL Acetaminophen (10-20) mcg/mL Ur Barbiturates Screen Negative (Izndgv=855) ng/mL Ur Phencyclidine Scrn Negative (Cutoff=25) ng/mL Ur Amphetamines Screen Negative (Zytvly=1487) ng/mL U Benzodiazepines Scrn Positive H (Dgzlcv=937) ng/mL Urine Cocaine Screen Negative (Cutoff= 300) ng/mL U Marijuana (THC) Screen Negative (Cutoff = 50) ng/mL Ethyl Alcohol (Less than 10) mg/dL 08/20/17 08/20/17 Range/Units 19:00 19:00 WBC 6.4 (4.3-11.1) K/mcL RBC 4.59 (3.82-4.97) M/mcL Hgb 14.6 (11.5-15.4) g/dL Hct 41.6 (35.3-44.9) % MCV 90.6 (83.0-100.0) fL MCH 31.8 (28.0-33.3) pg MCHC 35.1 (31.6-35.5) g/dL RDW 13.3 (11.5-14.5) % Plt Count 199 (140-400) K/mcL MPV 9.4 (9.4-12.4) fL Immature Gran % 0.5 (0-4) % Seg Neutrophils % 50.1 % Lymphocytes % 35.6 % Monocytes % 6.3 % Eosinophils % 6.6 % Basophils % 0.9 % Neutrophils # 3.2 (1.6-8.9) K/mcL Lymphocytes # 2.3 (0.6-4.6) K/mcL Monocytes # 0.4 (0.0-1.3) K/mcL Eosinophils # 0.4 (0.0-0.6) K/mcL Basophils # 0.1 (0.0-0.2) K/mcL Sodium 137 (136-145) mEq/L Potassium 3.6 (3.5-5.1) mEq/L Chloride 101 (98-107) mEq/L Carbon Dioxide 30 H (23-29) mEq/L BUN 9 (6-20) mg/dL Creatinine 0.75 (0.60-1.20) mg/dL Est GFR ( Amer) > 60 (> 60) Est GFR (Non-Af Amer) > 60 (> 60) BUN/Creatinine Ratio 12 (6-26) Glucose 134 H (70-105) mg/dL Calculated Osmolality 285 (280-300) Calcium 9.4 (8.6-10.3) mg/dL Urine Color (Yellow) Urine Clarity (Clear) Urine pH (5.0-8.0) pH Units Ur Specific [place] (1.010-1.025) Urine Protein (Neg-Trace) mg/dL Urine Glucose (UA) (Normal) mg/dL Urine Ketones (Negative) mg/dL Urine Blood (Negative) Urine Nitrite (Negative) Urine Bilirubin (Negative) Urine Urobilinogen (Normal) mg/dL Ur Leukocyte Esterase (Negative) Urine Microscopic WBC (0-3) per hpf Ur Squamous Epith Cells (None-Few) per lpf Urine Bacteria (None-Few) per hpf Hyaline Casts (None-Few) per lpf Urine Yeast (None Seen) per hpf Urine Test (Negative) Salicylates < 2.5 L (15.0-30.0) mg/dL Urine Opiates Screen (Xnkzmm=042) ng/mL Acetaminophen < 10 L (10-20) mcg/mL Ur Barbiturates Screen (Ofthmh=018) ng/mL Ur Phencyclidine Scrn (Cutoff=25) ng/mL Ur Amphetamines Screen (Lfojhs=8526) ng/mL U Benzodiazepines Scrn (Nzmtcw=137) ng/mL Urine Cocaine Screen (Cutoff= 300) ng/mL U Marijuana (THC) Screen (Cutoff = 50) ng/mL Ethyl Alcohol < 10 (Less than 10) mg/dL Psychiatric Medical Clearance - Medical Clearance Checklist Does the patient have a NEW psychiatric condition?: No Any abnormalities indicating possible medical illness?: No Any history of medical issues?: No Medical History: Suicidal ideation (Acute) Major depressive disorder, recurrent episode, unspecified (Acute) Major depressive disorder, single episode, unspecified (Acute) Depression (Acute) Acute bronchitis (Inactive) Allergic reaction (Inactive) Bronchitis (Inactive) No Social History Section defined Any abnormal vital signs prior to transfer?: No Current Vitals: Last Vital Signs Temp 98.1 F 08/20/17 17:47 Pulse 95 08/20/17 17:47 Resp 16 08/20/17 17:47 BP 178/80 08/20/17 17:47 Pulse Ox 98 08/20/17 17:47 Is the patient intoxicated or cognitively impaired?: No Psychiatric Lab Panel: Drug Levels and Toxicity 08/20/17 08/20/17 17:57 19:00 Urine Opiates Screen Negative Acetaminophen < 10 L Ur Barbiturates Screen Negative Ur Phencyclidine Scrn Negative Ur Amphetamines Screen Negative U Benzodiazepines Scrn Positive H Urine Cocaine Screen Negative U Marijuana (THC) Screen Negative Ethyl Alcohol < 10 Any abnormalities on the physical exam?: No Any abnormal labs?: No Abnormal Labs: Abnormal lab results Carbon Dioxide 30 mEq/L (23-29) H 08/20/17 19:00 Glucose 134 mg/dL (70-105) H 08/20/17 19:00 Urine Clarity Cloudy (Clear) A 08/20/17 17:57 Urine Blood Trace (Negative) H 08/20/17 17:57 Ur Squamous Epith Cells Many per lpf (None-Few) H 08/20/17 17:57 Urine Yeast Few per hpf (None Seen) H 08/20/17 17:57 Salicylates < 2.5 mg/dL (15.0-30.0) L 08/20/17 19:00 Acetaminophen < 10 mcg/mL (10-20) L 08/20/17 19:00 U Benzodiazepines Scrn Positive ng/mL (Jhfcgj=214) H 08/20/17 17:57 Does the patient require durable medical equiptment?: No Is the patient ambulatory?: Yes Is the patient a fall risk?: No Has the patient been medically cleared?: Yes Statement of Medical Clearance: I have evaluated the patient, reviewed diagnostic information, and certify that the patient's medical condition is sufficiently stable that transfer to the psychiatric unit does not pose a significant risk of deterioration.
[2017-08-20 18:24] LABS: Bacteria,Urine None Seen per hpf (None-Few); Hyaline Casts,Urine None Seen per lpf (None-Few); Squamous Epithelial Cell,Urine Many per lpf (None-Few); WBC,Urine 0-3 per hpf (0-3)
[2017-08-20] MEDS ORDERED: Ibuprofen 800 MG TABLET PO ONE (18:32)
[2017-08-20 18:37] LABS: Amphetamine Screen,Urine Negative ng/mL (Cutoff=1000); Barbiturate Screen,Urine Negative ng/mL (Cutoff=200); Benzodiazepines Screen,Urine Positive ng/mL (Cutoff=200); Cannabinoid Screen,Urine Negative ng/mL (Cutoff = 50); Cocaine Screen,Urine Negative ng/mL (Cutoff= 300); Opiate Screen,Urine Negative ng/mL (Cutoff=300); Phencyclidine Screen,Urine Negative ng/mL (Cutoff=25); Yeast,Urine Few per hpf (None Seen)
[2017-08-20 19:10] LABS: Basophils # 0.1 K/mcL (0.0-0.2); Basophils % 0.9 %; Eosinophils # 0.4 K/mcL (0.0-0.6); Eosinophils % 6.6 %; Hematocrit 41.6 % (35.3-44.9); Hemoglobin 14.6 g/dL (11.5-15.4); Immature Granulocytes % 0.5 % (0-4); Lymphocytes # 2.3 K/mcL (0.6-4.6); Lymphocytes % 35.6 %; Mean Corpuscular HGB Conc 35.1 g/dL (31.6-35.5); Mean Corpuscular Hemoglobin 31.8 pg (28.0-33.3); Mean Corpuscular Volume 90.6 fL (83.0-100.0); Mean Platelet Volume 9.4 fL (9.4-12.4); Monocytes # 0.4 K/mcL (0.0-1.3); Monocytes % 6.3 %; Neutrophils # 3.2 K/mcL (1.6-8.9); Platelet Count 199 K/mcL (140-400); Red Blood Count 4.59 M/mcL (3.82-4.97); Red Cell Distribution Width 13.3 % (11.5-14.5); Segmented Neutrophils % 50.1 %
[2017-08-20 19:31] LABS: Acetaminophen < 10 mcg/mL (10-20); BUN/Creatinine Ratio 12 (6-26); Blood Urea Nitrogen 9 mg/dL (6-20); Calcium 9.4 mg/dL (8.6-10.3); Carbon Dioxide 30 mEq/L (23-29); Chloride 101 mEq/L (98-107); Ethanol < 10 mg/dL (Less than 10); Glucose 134 mg/dL (70-105); Osmolality,Calculated 285 (280-300); Potassium 3.6 mEq/L (3.5-5.1); Salicylate < 2.5 mg/dL (15.0-30.0); Sodium 137 mEq/L (136-145); eGFR For African Americans > 60 (> 60); eGFR For Non-African Americans > 60 (> 60)
[2017-08-20] MEDS ORDERED: Aspirin 81 MG TAB.CHEW PO STA (20:38)
[2017-08-20] MEDS ORDERED: diazePAM 5 MG TABLET PO ONE (20:38)
[2017-08-20] MEDS ORDERED: hydrOXYzine pamoate 25 MG CAPSULE PO PRN (20:59)
[2017-08-20] MEDS ORDERED: Haloperidol Lactate 5 MG/ML VIAL IM PRN (20:59)
[2017-08-20] MEDS ORDERED: MOM Conc 10 ML UD.LIQ PO PRN (20:59)
[2017-08-20] MEDS ORDERED: *HR* LORazepam 1 MG TABLET PO PRN (20:59)
[2017-08-20] MEDS ORDERED: *HR* LORazepam 2 MG/ML VIAL IM PRN (20:59)
[2017-08-20] MEDS ORDERED: Mag Hydrox/Al Hydrox/Simeth 30 ML UDC PO PRN (20:59)
[2017-08-20] MEDS ORDERED: *HR* EPINEPHrine 0.3 MG/0.3 ML (PEN) IM PRN (21:02)
[2017-08-20] MEDS: Lurasidone 20 MG TABLET PO SCH (22:48)
[2017-08-21] MEDS: Aspirin Enteric Coated 325 MG Tablet PO SCH (09:19)
[2017-08-21] MEDS: Nicotine 21 MG PATCH.TD24 TD SCH (09:20)
[2017-08-21] MEDS: Loratadine 10 MG TABLET PO SCH (09:20)
[2017-08-21] MEDS: diazePAM 10 MG TABLET PO PRN ×3 (09:24→20:38)
[2017-08-21] MEDS: (Brexpiprazole [Rexulti] 1 MG) PO SCH (09:27)
--- NOTE | 2017-08-21 10:04 | Psychiatry History & Physical ---
Date of Encounter: 08/21/17 Time of Encounter: 11:30 History of Present Illness Patient Stated Chief Complaint: "I feel like my head is an egg and it cracked." Medicare Admission Attestation: For traditional Medicare patients the provided hospital inpatient services are reasonable and necessary and in the case of services not specified as inpatient -only under 42 CFR 419.22 (n), that they are appropriately provided as inpatient services in accordance 42 CFR 412.3. For Critical Access Hospital the patient may reasonably be expected to be discharged or transferred to a hospital within 96 hours after admission to the Critical Access Hospital. Admitted From: Emergency Dept Plans for Post Hospital Care: Home History of Present Illness: Ms. Campoverde is a 52 year old female with a history of multiple medical issues including chronic pain, severe depression and anxiety, who presented to the ER with increasing depression and suicidal ideation with a plan to stab herself or shoot herself. Patient states that she has struggled with depression for a while and recently she feels like her depression symptoms have worsened. She also reports chronic pain that makes her frustrated with her life. She feels hopeless and helpless about her future. She lives with a roommate and her mother and sometimes this environment is stressful for her. She does not have any means of financial support and is applying for disability but reports that she was told it may be close to 2 years before she is able to get financial help. She reports difficulty sleeping at times secondary to pain. She feels that she has chronic fatigue during the day. She is not sure if some of her medicines may be making this worse. Patient states that she has thought about suicide many times but never attempted. She does have an outpatient psychiatrist she is working with to help adjust medications. She has a therapist as well. Past Med Surg Social Fam HX - Past Medical History Medical history: hyperlipidemia, hypertension, thyroid disease, other - Past Psychiatric History Psychiatric history: Reports: previous psychiatric hospitalization Past psychiatric history details: One previous psychiatric admission. No previous suicide attempts. She has a psychiatrist and a therapist locally in [place]. Family psychiatric history: No Family History of Suicide: None - Past Surgical History Surgical History: appendectomy - Social History Smoking Status: Current every day smoker Smokeless Tobacco Status: No Alcohol use: rarely Drug use: none Occupational status: unemployed Current living situation: Home, With Family Activity Level: Independent ambulation - Family History Mother Hx Family Endocrine Disorder: Yes (DM) Hx Family Neuromuscular Disorders: Yes (TIAs) Medications & Allergies Albuterol Sulfate [Albuterol Inhaler] 2 puff IH Q6HR PRN 07/05/16 [History] Atorvastatin Calcium [Lipitor] 20 mg PO DAILY 07/05/16 [History] Cyclobenzaprine [Flexeril] 10 mg PO TID PRN 07/05/16 [History] EPINEPHrine [Epipen] 0.3 mg IM ONCE PRN 07/05/16 [History] Escitalopram [Lexapro] 20 mg PO DAILY 07/05/16 [History] Esomeprazole Magnesium [Nexium] 40 mg PO DAILY 07/05/16 [History] Levothyroxine [Synthroid] 75 mcg PO DAILY 07/05/16 [History] diazePAM [Valium] 10 mg PO TID PRN 07/05/16 [History] Amitriptyline [Elavil] 25 mg PO HS 06/12/17 [History] Brexpiprazole [Rexulti] 1 mg PO DAILY 06/12/17 [History] Cetirizine HCl [Cetirizine HCl] 10 mg PO DAILY 06/12/17 [History] Diclofenac Sodium [Voltaren] 50 mg PO TID PRN 06/12/17 [History] Lurasidone [Latuda] 20 mg PO DAILY 06/12/17 [History] Aspirin [Ecotrin] 325 mg PO DAILY 08/20/17 [History] Ergocalciferol (VITAMIN D2) [Vitamin D2] 50,000 unit PO QWEEK 08/20/17 [History] Montelukast [Singulair] 10 mg PO DAILY 08/20/17 [History] 3 Allergy/AdvReac Type Severity Reaction Status Date / Time acetaminophen [From Vicodin] Allergy Mild Nausea Verified 08/20/17 20:25 hydrocodone [From Vicodin] Allergy Mild Nausea Verified 08/20/17 20:25 aspirin [From Percodan] AdvReac Mild Nausea Verified 08/20/17 20:25 codeine AdvReac Mild Nausea Verified 08/20/17 20:25 Oxycodone [From Percocet] AdvReac Mild Nausea Verified 08/20/17 20:25 tramadol [From Ultram] AdvReac Mild Nausea Verified 08/20/17 20:25 Sulfa (Sulfonamide AdvReac Nausea Verified 08/20/17 20:25 Antibiotics) [place] Allergy Hives Uncoded 08/20/17 20:25 Review of Systems Constitutional: Denies: fever, chills, weakness, weight change Eyes: Denies: eye pain, vision change Ears, Nose, Throat: Denies: ear pain, throat pain, dental pain, hearing loss, congestion Cardiovascular: Denies: chest pain, palpitations, dyspnea on exertion Respiratory: Denies: cough, dyspnea, wheezes Gastrointestinal: Denies: abdominal pain, nausea, vomiting, diarrhea, constipation Genitourinary female: Denies: urgency, dysuria, frequency, abnormal menses, dyspareunia Musculoskeletal: Reports: joint pain, myalgia Integumentary: Denies: rash, lesions, pruritus Neurological: Denies: headache, weakness, numbness, memory loss Psychiatric: Reports: depression, anxiety, abnormal sleep pattern, suicidal ideation, difficulty concentrating, hopelessness, irritability, mood swings Endocrine: Denies: fatigue, heat or cold intolerance Hematologic/Lymphatic: Denies: easy bruising, lymphadenopathy Allergic/Immunologic: Denies: urticaria, itchy eyes Exam - HEENT Head exam IM: Present: atraumatic Eye exam IM: Present: EOMI, normal appearance, PERRL ENT exam IM: Present: normal exam - Neurological Neurological exam: Present: CN II-XII intact - Respiratory Respiratory exam IM: Present: CTAB - GI/Abdominal GI/Abdominal exam IM: Present: normal bowel sounds, soft. Absent: tenderness - Extremities Extremities exam IM: Present: full ROM - Skin Skin exam IM: Present: dry, warm - Constitutional Vitals: Temp Pulse Resp BP Pulse Ox 98.2 F 76 16 137/88 98 08/20/17 21:00 08/20/17 21:00 08/20/17 21:03 08/20/17 21:03 08/20/17 17:47 General appearance: age & developmentally appropriate, well-groomed, well- nourished - Musculoskeletal Gait: normal Station: relaxed Strength & Tone: normal for patient - Psychiatric Patient Orientation: Yes Person, Yes Time, Yes Place Level of alertness: Alert Behavior: calm, cooperative Psychomotor activity: Normal Eye Contact: Maintains Eye Contact Mood Description: Depressed, Anxious Affect description: congruent with mood, tearful, dysphoric Speech Volume: Normal Speech pattern: normal rate, normal rhythm, normal tone, fluent, spontaneous Language & Vocabulary: consistent with education Thought Process: Intact, Linear Thought Content: No Suicidal ideation, No Homicidal ideation, No Overt delusions Perceptual Disturbances: No Auditory hallucinations, No Visual hallucinations Attention Span Ability: Capable of Focused Attention Memory Description: Grossly Intact Patient Reliability: Reliable Historian Fund of knowledge: No abstraction ability, Yes average, Yes aware of current events Intelligence Estimate: Average Judgment: Limited Insight: Partial Results - Labs Labs: Laboratory Last Values WBC 6.4 K/mcL (4.3-11.1) 08/20/17 19:00 RBC 4.59 M/mcL (3.82-4.97) 08/20/17 19:00 Hgb 14.6 g/dL (11.5-15.4) 08/20/17 19:00 Hct 41.6 % (35.3-44.9) 08/20/17 19:00 MCV 90.6 fL (83.0-100.0) 08/20/17 19:00 MCH 31.8 pg (28.0-33.3) 08/20/17 19:00 MCHC 35.1 g/dL (31.6-35.5) 08/20/17 19:00 RDW 13.3 % (11.5-14.5) 08/20/17 19:00 Plt Count 199 K/mcL (140-400) 08/20/17 19:00 MPV 9.4 fL (9.4-12.4) 08/20/17 19:00 Immature Gran % 0.5 % (0-4) 08/20/17 19:00 Seg Neutrophils % 50.1 % 08/20/17 19:00 Lymphocytes % 35.6 % 08/20/17 19:00 Monocytes % 6.3 % 08/20/17 19:00 Eosinophils % 6.6 % 08/20/17 19:00 Basophils % 0.9 % 08/20/17 19:00 Neutrophils # 3.2 K/mcL (1.6-8.9) 08/20/17 19:00 Lymphocytes # 2.3 K/mcL (0.6-4.6) 08/20/17 19:00 Monocytes # 0.4 K/mcL (0.0-1.3) 08/20/17 19:00 Eosinophils # 0.4 K/mcL (0.0-0.6) 08/20/17 19:00 Basophils # 0.1 K/mcL (0.0-0.2) 08/20/17 19:00 Sodium 137 mEq/L (136-145) 08/20/17 19:00 Potassium 3.6 mEq/L (3.5-5.1) 08/20/17 19:00 Chloride 101 mEq/L (98-107) 08/20/17 19:00 Carbon Dioxide 30 mEq/L (23-29) H 08/20/17 19:00 BUN 9 mg/dL (6-20) 08/20/17 19:00 Creatinine 0.75 mg/dL (0.60-1.20) 08/20/17 19:00 Est GFR ( Amer) > 60 (> 60) 08/20/17 19:00 Est GFR (Non-Af Amer) > 60 (> 60) 08/20/17 19:00 BUN/Creatinine Ratio 12 (6-26) 08/20/17 19:00 Glucose 134 mg/dL (70-105) H 08/20/17 19:00 Calculated Osmolality 285 (280-300) 08/20/17 19:00 Calcium 9.4 mg/dL (8.6-10.3) 08/20/17 19:00 Urine Color Yellow (Yellow) 08/20/17 17:57 Urine Clarity Cloudy (Clear) A 08/20/17 17:57 Urine pH 6.0 pH Units (5.0-8.0) 08/20/17 17:57 Ur Specific [place] 1.018 (1.010-1.025) 08/20/17 17:57 Urine Protein Negative mg/dL (Neg-Trace) 08/20/17 17:57 Urine Glucose (UA) Normal mg/dL (Normal) 08/20/17 17:57 Urine Ketones Negative mg/dL (Negative) 08/20/17 17:57 Urine Blood Trace (Negative) H 08/20/17 17:57 Urine Nitrite Negative (Negative) 08/20/17 17:57 Urine Bilirubin Negative (Negative) 08/20/17 17:57 Urine Urobilinogen Normal mg/dL (Normal) 08/20/17 17:57 Ur Leukocyte Esterase Negative (Negative) 08/20/17 17:57 Urine Microscopic WBC 0-3 per hpf (0-3) 08/20/17 17:57 Ur Squamous Epith Cells Many per lpf (None-Few) H 08/20/17 17:57 Urine Bacteria None Seen per hpf (None-Few) 08/20/17 17:57 Hyaline Casts None Seen per lpf (None-Few) 08/20/17 17:57 Urine Yeast Few per hpf (None Seen) H 08/20/17 17:57 Urine Test Negative (Negative) 08/20/17 17:57 Salicylates < 2.5 mg/dL (15.0-30.0) L 08/20/17 19:00 Urine Opiates Screen Negative ng/mL (Ssrmls=061) 08/20/17 17:57 Acetaminophen < 10 mcg/mL (10-20) L 08/20/17 19:00 Ur Barbiturates Screen Negative ng/mL (Pkurxt=706) 08/20/17 17:57 Ur Phencyclidine Scrn Negative ng/mL (Cutoff=25) 08/20/17 17:57 Ur Amphetamines Screen Negative ng/mL (Yxnzye=8395) 08/20/17 17:57 U Benzodiazepines Scrn Positive ng/mL (Uglbsr=615) H 08/20/17 17:57 Urine Cocaine Screen Negative ng/mL (Cutoff= 300) 08/20/17 17:57 U Marijuana (THC) Screen Negative ng/mL (Cutoff = 50) 08/20/17 17:57 Ethyl Alcohol < 10 mg/dL (Less than 10) 08/20/17 19:00 Assessment and Plan (1) Major depressive disorder Current visit: Yes Status: Acute Plan: Admit inpatient for safety and stabilization, Close observation, Suicide Precautions per unit protocol, Encourage participation in unit milieu, Group Therapy, Monitor sleep, Monitor appetite Additional Plan: We will restart hold meds for now. Patient on multiple medications of the same class including to second generation antipsychotics. We will request records from outpatient psychiatrist and then make decisions on which medications may be to taper. Patient agreeable to this plan. Encouraged patient to attend group and unit activities. Patient verbalizes mainly depressive episodes and manic episodes have been reported in vague terms but with no specific instances. Both admissions here have been for depression. We will review outpatient record to determine if patient has had documented episode of sonja. Risks, benefits, side effects, alternatives discussed w/pt: Yes Patient agreeable to treatment: Yes Plans for Post Hospital Care: Home Estimated Length of Stay (Days): 3 Qualifiers: Major depression recurrence: recurrent Active/Remission status: currently active Major depression episode severity: severe Psychotic features: without psychotic features Qualified Code(s): F33.2 - Major depressive disorder, recurrent severe without psychotic features (2) Anxiety Current visit: Yes Status: Acute Plan: Admit inpatient for safety and stabilization, Close observation, Suicide Precautions per unit protocol, Encourage participation in unit milieu, Group Therapy, Monitor sleep, Monitor appetite Additional Plan: Continue home meds for anxiety. Monitor closely for sedation. Encourage positive coping strategies. Risks, benefits, side effects, alternatives discussed w/pt: Yes Patient agreeable to treatment: Yes Plans for Post Hospital Care: Home
[2017-08-21] MEDS: Lurasidone 20 MG TABLET PO SCH (20:38)
[2017-08-22] MEDS: Aspirin Enteric Coated 325 MG Tablet PO SCH (08:06)
[2017-08-22] MEDS: Nicotine 21 MG PATCH.TD24 TD SCH (08:07)
[2017-08-22] MEDS: Loratadine 10 MG TABLET PO SCH (08:07)
[2017-08-22] MEDS: (Brexpiprazole [Rexulti] 1 MG) PO SCH (08:09)
[2017-08-22] MEDS ORDERED: diazePAM 10 MG TABLET PO PRN (09:58)
--- NOTE | 2017-08-22 12:14 | Psychiatry Progress Note ---
Date of Encounter: 08/22/17 Time of Encounter: 09:40 Subjective Interval history: Patient is seen today for follow-up. She reports continued depression but feels less hopeless. She still feels physically very tired. Patient is willing to adjust medicines and request that the Latuda be discontinued. Given her level of fatigue she is also willing to decrease amitriptyline. We will avoid adding more medications and monitor closely for improvement in sedation and overall mood. Encourage group attendance. She reports that the thoughts of suicide are less frequent. Review of Systems Psychiatric: Reports: depression, anxiety, abnormal sleep pattern, suicidal ideation Results - Vital Signs Vital Signs: Temp Pulse Resp BP Pulse Ox 97.1 F L 71 18 134/83 98 08/22/17 09:00 08/22/17 09:00 08/22/17 09:00 08/22/17 09:00 08/20/17 17:47 Assessment and Plan (1) Major depressive disorder Current visit: Yes Status: Acute Plan: Continue hospitalization, Close observation, Suicide Precautions per unit protocol, Encourage participation in unit milieu, Group Therapy, Monitor sleep, Monitor appetite Additional Plan: Patient's depression is improving slightly. We will taper some medications in order to improve fatigue. Monitor closely. Consider D/C tomorrow if symptoms improve. Risks, benefits, side effects, alternatives discussed w/pt: Yes Patient agreeable to treatment: Yes Qualifiers: Major depression recurrence: recurrent Active/Remission status: currently active Major depression episode severity: severe Psychotic features: without psychotic features Qualified Code(s): F33.2 - Major depressive disorder, recurrent severe without psychotic features (2) Anxiety Current visit: Yes Status: Acute Plan: Continue hospitalization, Close observation, Suicide Precautions per unit protocol, Encourage participation in unit milieu, Group Therapy, Monitor sleep, Monitor appetite Additional Plan: Decrease Valium to 10 mg by mouth twice a day. Educated patient about mixing the Flexeril with the Valium as well as her other medications could lead to increased sedation. Patient is agreeable to taking the least amount of Valium necessary for anxiety. Risks, benefits, side effects, alternatives discussed w/pt: Yes Patient agreeable to treatment: Yes Consult Discharge Plan - Plan Referrals: [facility] [Outside] - 08/26/17 3:00 pm (The above appointment is with Too Quiroz for mental health counseling services. Please arrive 10 minutes early to all appointments to complete the check-in process. Please bring your insurance card and photo ID. If you are unable to keep any scheduled appointment, 24 hour business notice of cancellation is expected. The above appointment(s) reflects first availability. You may contact the office regularly to check for cancellations that may allow you to be seen sooner. ) Peewee Delatorre MD [Non-Partnered Physician] - Psychiatry Exam - Constitutional Vitals: Temp Pulse Resp BP Pulse Ox 97.1 F L 71 18 134/83 98 08/22/17 09:00 08/22/17 09:00 08/22/17 09:00 08/22/17 09:00 08/20/17 17:47 General appearance: unkempt, obese - Musculoskeletal Gait: slow Station: stooped Strength & Tone: mild weakness - Psychiatric Patient Orientation: Yes Person, Yes Time, Yes Place Level of alertness: Alert Behavior: calm, cooperative Psychomotor activity: Normal Eye Contact: Maintains Eye Contact Mood Description: Depressed Affect description: dysphoric Speech Volume: Normal Speech pattern: normal rate, normal rhythm, normal tone, fluent, spontaneous Language & Vocabulary: consistent with education Thought Process: Logical, Linear Thought Content: Yes Suicidal ideation Perceptual Disturbances: No Auditory hallucinations, No Visual hallucinations Attention Span Ability: Capable of Focused Attention Memory Description: Grossly Intact Patient Reliability: Reliable Historian Fund of knowledge: Yes abstraction ability, Yes average Intelligence Estimate: Average Judgment: Limited Insight: Partial
[2017-08-23] MEDS: Nicotine 21 MG PATCH.TD24 TD SCH (08:12)
[2017-08-23] MEDS: Aspirin Enteric Coated 325 MG Tablet PO SCH (08:13)
[2017-08-23] MEDS: Loratadine 10 MG TABLET PO SCH (08:13)
[2017-08-23] MEDS: (Brexpiprazole [Rexulti] 1 MG) PO SCH (09:28)
[2017-08-23 09:31] VITALS: BP 151/90
--- NOTE | 2017-08-23 10:31 | Discharge Summary ---
Date of Encounter: 08/23/17 Time of Encounter: 09:20 Diagnosis - Discharge Diagnosis (1) Major depressive disorder Priority: Primary Status: Acute Qualifiers: Major depression recurrence: recurrent Active/Remission status: currently active Major depression episode severity: severe Psychotic features: without psychotic features Qualified Code(s): F33.2 - Major depressive disorder, recurrent severe without psychotic features (2) Anxiety Priority: Secondary Status: Acute Medications - Discharge Medications Albuterol Sulfate [Albuterol Inhaler] 2 puff IH Q6HR PRN 07/05/16 [History] Atorvastatin Calcium [Lipitor] 20 mg PO DAILY 07/05/16 [History] Cyclobenzaprine [Flexeril] 10 mg PO TID PRN 07/05/16 [History] EPINEPHrine [Epipen] 0.3 mg IM ONCE PRN 07/05/16 [History] Escitalopram [Lexapro] 20 mg PO DAILY 07/05/16 [History] Esomeprazole Magnesium [Nexium] 40 mg PO DAILY 07/05/16 [History] Levothyroxine [Synthroid] 75 mcg PO DAILY 07/05/16 [History] diazePAM [Valium] 10 mg PO TID PRN 07/05/16 [History] Brexpiprazole [Rexulti] 1 mg PO DAILY 06/12/17 [History] Cetirizine HCl 10 mg PO DAILY 06/12/17 [History] Diclofenac Sodium [Voltaren] 50 mg PO TID PRN 06/12/17 [History] Aspirin [Ecotrin] 325 mg PO DAILY 08/20/17 [History] Ergocalciferol (VITAMIN D2) [Vitamin D2] 50,000 unit PO QWEEK 08/20/17 [History] Montelukast [Singulair] 10 mg PO DAILY 08/20/17 [History] 3 Allergy/AdvReac Type Severity Reaction Status Date / Time acetaminophen [From Vicodin] Allergy Mild Nausea Verified 08/20/17 20:25 hydrocodone [From Vicodin] Allergy Mild Nausea Verified 08/20/17 20:25 aspirin [From Percodan] AdvReac Mild Nausea Verified 08/20/17 20:25 codeine AdvReac Mild Nausea Verified 08/20/17 20:25 Oxycodone [From Percocet] AdvReac Mild Nausea Verified 08/20/17 20:25 tramadol [From Ultram] AdvReac Mild Nausea Verified 08/20/17 20:25 Sulfa (Sulfonamide AdvReac Nausea Verified 08/20/17 20:25 Antibiotics) [place] Allergy Hives Uncoded 08/20/17 20:25 Provider Date of admission: 08/20/17 20:56 Primary care physician: PCP NONE Discharging clinician: Marisa Desai Psychiatry Exam - Constitutional Vitals: Temp Pulse Resp BP Pulse Ox 98.3 F 81 16 151/90 98 08/23/17 09:00 08/23/17 09:00 08/23/17 09:00 08/23/17 09:00 08/20/17 17:47 General appearance: age & developmentally appropriate, obese - Musculoskeletal Gait: normal Station: relaxed Strength & Tone: normal for patient - Psychiatric Patient Orientation: Yes Person, Yes Time, Yes Place Level of alertness: Alert Behavior: calm, cooperative Psychomotor activity: Normal Eye Contact: Maintains Eye Contact Mood Description: Euthymic/stable Affect description: congruent with mood, full range Speech Volume: Normal Speech pattern: normal rate, normal rhythm, normal tone, fluent, spontaneous Language & Vocabulary: consistent with education Thought Process: Linear, Goal Oriented Thought Content: No Suicidal ideation, No Homicidal ideation, No Overt delusions Perceptual Disturbances: No Auditory hallucinations, No Visual hallucinations Attention Span Ability: Capable of Focused Attention Memory Description: Grossly Intact Patient Reliability: Reliable Historian Fund of knowledge: Yes abstraction ability, Yes aware of current events Intelligence Estimate: Average Judgment: Limited Insight: Partial Hospital Course Hospital course: Ms. Campoverde is a 52 year old female with a history of chronic pain as well as severe depression and anxiety who presented to the hospital with worsening depression and thoughts of wanting to kill herself. She was admitted to for psychiatric stabilization. She was incorporated into the therapeutic milieu and offer group and individual as well as recreational therapy. She would also offered psychoeducational materials and supportive therapy. She was placed on suicide precautions and close observation. Patient was initially restarted on her home medications. Patient was on multiple different medications that can cause sedation as well as several medications in the same class. We reviewed these and patient was willing to adjust. We discontinued Latuda and amitriptyline. We also decreased Valium dosage to 10 mg twice a day as needed. Patient tolerated these adjustments well and stated she actually started to feel better and was having less fatigue. She did report chronic back pain and muscle aches throughout the hospital stay. Sleep was mildly improved prior to discharge. Patient did report that her mood was better and she denied suicidal or homicidal ideation, intent, or plan. She is willing to continue her treatment as an outpatient. She will follow-up with her outpatient psychiatrist and therapist. - Time Spent with Patient Total time spent providing and/or coordinating discharge services: Less than 30 minutes Assessment and Plan - Patient/Caregiver Discharge Instructions Activity: resume usual activities as tolerated Diet: regular diet - Follow up Plan Follow up with: [facility] [Outside] - 08/26/17 3:00 pm (The above appointment is with Too Quiroz for mental health counseling services. Please arrive 10 minutes early to all appointments to complete the check-in process. Please bring your insurance card and photo ID. If you are unable to keep any scheduled appointment, 24 hour business notice of cancellation is expected. The above appointment(s) reflects first availability. You may contact the office regularly to check for cancellations that may allow you to be seen sooner. ) Peewee Delatorre MD [Non-Partnered Physician] - 09/23/17 1:00 pm (The above appointment is with Dr. Delatorre for outpatient psychiatric assessment and medication management services,) Functional capacity at discharge: independent ambulation Overall status at discharge: Stable Disposition: Home, Self-Care Quality - Multiple Antipsychotics Patient discharged on 2 or more antipsychotic medications: No Procedures - Procedures Procedures: Medication Management, Crisis Stabilization, Supportive Therapy, Group Therapy, Psychoeducational Therapy
== END 2017-08-23 12:10 | disposition home or self-care (01) | DRG 751 ==
LOC: EMEROO 17:46 → 1ANU 20:56
PROVIDERS: ADMIT Student in an Organized Health Care Education/Training Program; ATTEND Student in an Organized Health Care Education/Training Program